=== PATIENT | male | born 1980 | race Caucasian/White ===

== ENCOUNTER 2021-07-22 17:29 | Emergency (ER) | payer SELFPAY ==
[~2021-07-22] VITALS: Ht 172.7 cm; Wt 109.0 kg
[2021-07-22 18:46] LABS: BASO # 0.1 x10^3/uL (0.0-0.2); BASO % 1 % (0-3); EOS # 0.4 x10^3/uL (0.0-0.7); EOS % 3 % (0-3); HEMATOCRIT 43.2 % (39.0-53.0); HEMOGLOBIN 14.2 g/dL (13.0-17.5); LYMPH # 2.6 x10^3/uL (1.0-4.8); LYMPH % 21 % (24-48); MEAN CORPUSCULAR HEMOGLOBIN 27 pg (25-35); MEAN CORPUSCULAR HGB CONC 33 g/dL (31-37); MEAN CORPUSCULAR VOLUME 83 fL (79-100); MONO # 1.3 x10^3/uL (0.0-1.1); MONO % 10 % (0-9); NEUT % 64 % (31-73); PLATELET COUNT 255 x10^3/uL (140-400); RED BLOOD COUNT 5.22 x10^6/uL (4.30-5.70); RED CELL DISTRIBUTION WIDTH 13.7 % (11.5-14.5); WHITE BLOOD COUNT 12.4 x10^3/uL (4.0-11.0)
--- NOTE | 2021-07-22 18:50 | EKG ---
[facility] [address] [place] [id number] Test Date: 2021-07-22 Test Time: 18:45:48 Pat Name: STEFANO SERRANO Department: Room: Gender: Front Desk Host: : [id number] Requested By: ED PATTERSON Order Number: [id number] Reading MD: Yuri Hubbard Measurements Intervals H[place]go Rate: 96 P: -76 MT: 154 QRS: -32 QRSD: 104 T: 43 QT: 332 QTc: 420 Interpretive Statements SINUS RHYTHM Electronically Signed On 07-24-2021 8:32:22 ASSOCIATE PROFESSOR OF COUNSELING by Yuri Hubbard
[2021-07-22 18:58] LABS: CREATININE 0.9 mg/dL (0.7-1.3); GFR 92.5; POTASSIUM 4.1 mmol/L (3.5-5.1)
[2021-07-22 19:00] VITALS: BP 136/89
[2021-07-22 19:02] LABS: INFLUENZA A PATIENT NEGATIVE (NEGATIVE); INFLUENZA B PATIENT NEGATIVE (NEGATIVE)
[2021-07-22 19:11] LABS: ALBUMIN 3.5 g/dL (3.4-5.0); ALBUMIN/GLOBULIN RATIO 0.7 (1.0-1.7); MAGNESIUM 2.3 mg/dL (1.8-2.4); TOTAL BILIRUBIN 0.4 mg/dL (0.2-1.0); TOTAL PROTEIN 8.8 g/dL (6.4-8.2)
--- NOTE | 2021-07-22 19:48 | RAD ---
XR CHEST 1V History: Reason: SOA / Spl. Instructions: / History: Comparison: None. Findings: Low lung volumes. Mild multifocal mid and bibasilar opacities. No pleural effusion. No pneumothorax. Normal heart size. Impression: 1. Low lung volumes with mild mid and bibasilar ill-defined opacities, may represent atelectasis or consolidations including viral pneumonia. Electronically signed by: Sebastián Bruce DO (07/22/2021 7:45 PM) [facility]
--- NOTE | 2021-07-22 19:55 | PHYS DOC ---
Past Medical History Additional Past Medical Histor: "SEVERE MORENO A CHILD." (LEONARDOED Trinidad MICROBIOLOGICAL LAB TECHNICIAN) Past Surgical History: Other Additional Past Surgical Histo: "SURGERIES FOR MY MORENO" (LEONARDOED Trinidad MICROBIOLOGICAL LAB TECHNICIAN) Smoking Status: Current Every Day Smoker Additional Information: COUPLE PACKS DAILY. Alcohol Use: None (MARTYED DIAZ MICROBIOLOGICAL LAB TECHNICIAN) General Adult EDM: Chief Complaint: COUGH HPI: HPI: Patient is a 41 year old male who presents to the ED today complaining of cough and shortness of breath, symptoms began 2 days ago. Patient denies any fever. Reports right-sided chest pain radiating to the right upper extremity rated as mild and intermittent with no exacerbating or relieving factors, symptoms began yesterday as well. Reports he is a current smoker. (ED PATTERSON MICROBIOLOGICAL LAB TECHNICIAN) Review of Systems: Review of Systems: Constitutional: Denies fever or chills. [] Eyes: Denies change in visual acuity. [] HENT: Denies nasal congestion or sore throat. [] Respiratory: Reports cough and shortness of breath Cardiovascular: Reports chest pain GI: Denies abdominal pain, nausea, vomiting, bloody stools or diarrhea. [] : Denies dysuria. [] Musculoskeletal: Denies back pain or joint pain. [] Integument: Denies rash. [] Neurologic: Denies headache, focal weakness or sensory changes. [] [] Psychiatric: Denies depression or anxiety. [] (ED PATTERSON MICROBIOLOGICAL LAB TECHNICIAN) Heart Score: C/O Chest Pain: N/A Risk Factors: Risk Factors: DM, Current or recent (<one month) smoker, HTN, HLP, family hist ory of CAD, obesity. Risk Scores: Score 0 - 3: 2.5% MACE over next 6 weeks - Discharge Home Score 4 - 6: 20.3% MACE over next 6 weeks - Admit for Clinical Observation Score 7 - 10: 72.7% MACE over next 6 weeks - Early Invasive Strategies (ED PATTERSON MICROBIOLOGICAL LAB TECHNICIAN) Allergies: Allergies: Allergies Coded Allergies Type Severity Reaction Last Updated Verified No Known Drug Allergies 07/22/21 No (ED PATTERSON MICROBIOLOGICAL LAB TECHNICIAN) Physical Exam: PE: Constitutional: Well developed, well nourished, no acute distress, non-toxic appearance. [] HENT: Normocephalic, atraumatic, bilateral external ears normal, oropharynx moist, no oral exudates, nose normal. [] Eyes: PERRLA, EOMI, conjunctiva normal, no discharge. [] Neck: Normal range of motion, no tenderness, supple, no stridor. [] Cardiovascular:Heart rate regular rhythm Lungs & Thorax: Diminished breath sounds, Abdomen: Bowel sounds normal, soft, no tenderness, no masses, no pulsatile masses. [] Skin: Warm, dry, no erythema, no rash. [] Back: No tenderness, no CVA tenderness. [] Extremities: No tenderness, no cyanosis, no clubbing, ROM intact, no edema. [] Neurologic: Alert and oriented X 3, normal motor function, normal sensory function, no focal deficits noted. [] Psychologic: Affect normal, judgement normal, mood normal. [] (ED PATTERSON APRN) Current Patient Data: Labs: Laboratory Tests Test 07/22/21 18:30 White Blood Count 12.4 x10^3/uL (4.0-11.0) H Red Blood Count 5.22 x10^6/uL (4.30-5.70) Hemoglobin 14.2 g/dL (13.0-17.5) Hematocrit 43.2 % (39.0-53.0) Mean Corpuscular Volume 83 fL (79-100) Mean Corpuscular Hemoglobin 27 pg (25-35) Mean Corpuscular Hemoglobin Concent 33 g/dL (31-37) Red Cell Distribution Width 13.7 % (11.5-14.5) Platelet Count 255 x10^3/uL (140-400) Neutrophils (%) (Auto) 64 % (31-73) Lymphocytes (%) (Auto) 21 % (24-48) L Monocytes (%) (Auto) 10 % (0-9) H Eosinophils (%) (Auto) 3 % (0-3) Basophils (%) (Auto) 1 % (0-3) Neutrophils # (Auto) 8.0 x10^3/uL (1.8-7.7) H Lymphocytes # (Auto) 2.6 x10^3/uL (1.0-4.8) Monocytes # (Auto) 1.3 x10^3/uL (0.0-1.1) H Eosinophils # (Auto) 0.4 x10^3/uL (0.0-0.7) Basophils # (Auto) 0.1 x10^3/uL (0.0-0.2) D-Dimer (Vikki) 2.39 ug/mlFEU (0.00-0.50) H Sodium Level 135 mmol/L (136-145) L Potassium Level 4.1 mmol/L (3.5-5.1) Chloride Level 98 mmol/L (98-107) Carbon Dioxide Level 30 mmol/L (21-32) Anion Gap 7 (6-14) Blood Urea Nitrogen 11 mg/dL (8-26) Creatinine 0.9 mg/dL (0.7-1.3) Estimated GFR (Cockcroft-Gault) 92.5 BUN/Creatinine Ratio 12 (6-20) Glucose Level 93 mg/dL (70-99) Lactic Acid Level 1.1 mmol/L (0.4-2.0) Calcium Level 9.0 mg/dL (8.5-10.1) Magnesium Level 2.3 mg/dL (1.8-2.4) Total Bilirubin 0.4 mg/dL (0.2-1.0) Aspartate Amino Transferase (AST) 23 U/L (15-37) Alanine Aminotransferase (ALT) 43 U/L (16-63) Alkaline Phosphatase 88 U/L (46-116) Creatine Kinase 79 U/L (39-308) Creatine Kinase MB (Mass) 0.6 ng/mL (0.0-3.6) Creatine Kinase MB Relative Index 0.8 % (0-4) Troponin I High Sensitivity < 4 ng/L (4-75) L GV-Hua-L-Type Natriuretic Peptide 96 pg/mL (0-124) Total Protein 8.8 g/dL (6.4-8.2) H Albumin 3.5 g/dL (3.4-5.0) Albumin/Globulin Ratio 0.7 (1.0-1.7) L Influenza Type A Antigen Negative (NEGATIVE) Influenza Type B Antigen Negative (NEGATIVE) Laboratory Tests 07/22/21 18:30 Laboratory Tests 07/22/21 18:30 Vital Signs: Vital Signs Date Time Temp Pulse Resp B/P (MAP) Pulse Ox O2 Delivery O2 Flow Rate FiO2 07/22/21 19:00 92 18 136/89 (105) 96 Room Air 07/22/21 18:16 2.0 07/22/21 17:55 97.8 97.8 (ED PATTERSON APRN) EKG: EKG: [] (ED PATTERSON APRN) Radiology/Procedures: Radiology/Procedures: [] (ED PATTERSON APRN) Course & Med Decision Making: Course & Med Decision Making Pertinent Labs and Imaging studies reviewed. (See chart for details) This is a 41-year-old male patient presented to the ED today complaining of cou gh, shortness of breath, chest pain, symptoms since yesterday He is hypoxic on arrival to the ED with O2 sats around 88% to 92% on room air. Patient eloped from the ED with his IV. RN called patient, he was told they will send police to his house to retrieve the IV. It is my understanding patient returned today ED waiting area, took his IV out in front of the security rep, threw it in trash and left (ED PATTERSON APRN) Course & Med Decision Making Patients Care and treatment plan provided by ER Nurse Practitioner. I was available for consult. Patient's chart reviewed. (BRIAN GANN DO) Yairon Disclaimer: Dimas Disclaimer: This electronic medical record was generated, in whole or in part, using a voice recognition dictation system. (ED PATTERSON APRN) Departure Departure Impression: Primary Impression: Cough Additional Impressions: Shortness of breath Smoking addiction Chest pain Qualified Codes: R07.9 - Chest pain, unspecified Disposition: LEFT AGAINST MEDICAL ADVICE Condition: STABLE Referrals: NO PCP (PCP) ED PATTERSON APRN Jul 22, 2021 19:55 BRIAN GANN DO Jul 23, 2021 03:37
== END 2021-07-22 21:18 | disposition left against medical advice (07) ==
LOC: ER 17:29
DX: R05.9 Cough, unspecified (principal); R06.02 Shortness of breath; R07.89 Other chest pain; F17.200 Nicotine dependence, unspecified, uncomplicated
CPT/HCPCS: 36415; 71045; 80053; 82553; 83605; 83735; 83880; 84145; 84484; 85025; 85379; 87040; 87804; 93005; 99285-25